=== PATIENT | female | born 1965 | race Caucasian/White ===

== ENCOUNTER 2024-04-27 06:20 | Day surgery (SDC) | payer BC, SELFPAY ==
[2024-04-24 12:51] VITALS: BMI 28.3
[2024-04-27 07:17] VITALS: BP 145/82; PULSE 83; RESP 16; TEMP 36.2; O2SAT 99
[2024-04-27] MEDS: LACTATED RINGERS 1000ML 1,000 ML 50 ML IV (07:23)
--- NOTE | 2024-04-27 07:32 | EXP.ANES.CKL ---
[facility] Disclaimer: The information contained in this section may have been updated after the patient was seen, as this information can be updated by other users. Medical History SVT (supraventricular tachycardia) Sleep apnea History of COVID-19 Hypothyroid Carpal tunnel syndrome Surgical History History of surgery Hx of carpal tunnel repair Hx of rotator cuff surgery History of fusion of cervical spine History of esophagogastroduodenoscopy (EGD) History of colonoscopy History of cholecystectomy Family History Father Laryngeal cancer Brother Esophageal cancer Mother Diabetes Hypertension Mesothelioma Social History Smoking Status: Never smoker alcohol intake: never substance use type: denies use current occupational status: employed Travel in the last 8 weeks: None caffeine: No Have you lived/traveled outside [place] in past 30 days?: No Contact w/someone who lives/traveled outside [place] past 30 days?: No Exposure to someone with infectious disease in past 14 days?: Yes Do you have a fever (greater than 100.4 F or 38 C)?: No Have you tested positive for COVID-19: Yes Exposed to someone with COVID-19 in past 14 days?: Yes Do you have a sore throat?: No Do you have a cough?: No Do you have any weakness?: No Are you experiencing any nausea/vomitting?: No Do you have any diarrhea?: No Are you experiencing any unusual bleeding?: No Do you have any muscle aches/pain?: No Do you have any abdominal pain?: No Are you experiencing loss of taste or smell?: No [facility] Anesthesia Checklist Patient Identification Patient Identification: Arm Band Structural Data Admitted From: Home Planned Operative Procedure/s: EGD Consent for Planned Operative Procedure(s) Verified: Yes Verified Documents: Surgical Consent and History and Physical NPO Status Verified Time NPO: 00:00 Additional verifications Anesthesia Reactions: No Airway Assessment Mallampati Score:: Class II C-Spine Mobility Assessed: Yes TMJ Mobility Assessed: Yes Dentition: Good Dentition Neurological Assessment Level of Consciousness: Awake, Alert and Appropriate Anesthesia Plan Anesthesia Risk discussed: Yes Anesthesia Plan: Verified ASA Class: II Anesthesia Type: MAC
--- NOTE | 2024-04-27 07:51 | P.HP_ITS ---
History of Present Illness *Admission Date: 04/27/24 *Reason for visit:: Dysphagia/family history of esophageal cancer and laryngeal cancer *History of present illness: Mrs. García is a 58-year-old female with dysphagia which has been worsening and family history of esophageal and laryngeal cancer who is here for diagnostic EGD. The examination is deemed medically necessary for EGD. The patient has been seen, interviewed and examined prior to the procedure by both myself and the anesthesia provider. [facility] Disclaimer: The information contained in this section may have been updated after the patient was seen, as this information can be updated by other users. Medical History SVT (supraventricular tachycardia) Sleep apnea History of COVID-19 Hypothyroid Carpal tunnel syndrome Surgical History History of surgery Hx of carpal tunnel repair Hx of rotator cuff surgery History of fusion of cervical spine History of esophagogastroduodenoscopy (EGD) History of colonoscopy History of cholecystectomy Family History Father Laryngeal cancer Brother Esophageal cancer Mother Diabetes Hypertension Mesothelioma Social History Smoking Status: Never smoker alcohol intake: never substance use type: denies use current occupational status: employed Travel in the last 8 weeks: None caffeine: No Have you lived/traveled outside [place] in past 30 days?: No Contact w/someone who lives/traveled outside [place] past 30 days?: No Exposure to someone with infectious disease in past 14 days?: Yes Do you have a fever (greater than 100.4 F or 38 C)?: No Have you tested positive for COVID-19: Yes Exposed to someone with COVID-19 in past 14 days?: Yes Do you have a sore throat?: No Do you have a cough?: No Do you have any weakness?: No Are you experiencing any nausea/vomitting?: No Do you have any diarrhea?: No Are you experiencing any unusual bleeding?: No Do you have any muscle aches/pain?: No Do you have any abdominal pain?: No Are you experiencing loss of taste or smell?: No Review of Systems Review of Systems Review of systems (narrative): Negative *Cardiovascular Comments: Negative *Gastrointestinal Comments: Negative *Genitourinary Comments: Negative *Musculoskeletal Comments: Negative *Neurologic Comments: Negative Meds Home Medications and Allergies Home Medications ?Medication ?Instructions ?Recorded ?Confirmed ?Type atorvastatin 20 mg tablet 20 mg PO DAILY 12/29/23 04/27/24 History folic acid 1 mg tablet 1 mg PO DAILY 12/29/23 04/27/24 History methotrexate sodium 2.5 mg tablet 2.5 mg PO WEEKLY 12/29/23 04/27/24 History pregabalin 75 mg capsule 75 mg PO ONCE 12/29/23 04/27/24 History thyroid (pork) 90 mg tablet ([employer] 90 mg PO DAILY 12/29/23 04/27/24 History Thyroid) vitamin B complex 1 tab PO DAILY 04/24/24 04/27/24 History New Prescriptions to Start Prescriptions: Allergies Allergy/AdvReac Type Severity Reaction Status Date / Time diphenhydramine (From Allergy Mild Rash Verified 04/27/24 07:14 Benadryl) Exam Data for Last 24 hours Vital signs and Labs for Last 24 Hours: Temp Pulse Resp BP Pulse Ox O2 Del Method 97.1 F L 83 16 145/82 H 99 Room Air 04/27/24 07:17 04/27/24 07:17 04/27/24 07:17 04/27/24 07:17 04/27/24 07:17 04/27/24 07:17 I & O for Last 24 hours: Intake & Output 04/24/24 04/25/24 04/26/24 04/27/24 23:59 23:59 23:59 23:59 Weight 181 lb *Routine HEENT Exam Head: Present normocephalic Eye: Present EOMI and PERRL ENT: Present mucous membranes moist *Routine Neck Exam Neck: Present supple *Routine Respiratory Exam Respiratory: Present CTA bilaterally *Routine Cardiovascular Exam Cardiovascular: Present RRR *Routine Abdominal Exam Abdominal: Present soft and normoactive bowel sounds; Absent tenderness *Routine Rectal Exam Rectal:: deferred *Routine Genitalia Exam Genitalia:: deferred *Routine Extremities Exam Extremities: Absent cyanosis, clubbing or edema *Routine Skin Exam Skin: Present warm; Absent rash *Routine Neurological Exam Neurological: Present alert and oriented X3 Assessment and Plan *Assessment and plan (1) Dysphagia: Status: Acute Category: Medical Code(s): R13.10 - Dysphagia, unspecified (2) Functional dyspepsia: Status: Acute Category: Medical Code(s): K30 - Functional dyspepsia (3) Family history of esophageal cancer: Status: Acute Category: Medical Code(s): Z80.0 - Family history of malignant neoplasm of digestive organs (4) Family history of cancer of larynx: Status: Acute Category: Medical Code(s): Z80.2 - Family history of malignant neoplasm of other respiratory and intrathora cic organs (5) Bloating: Status: Acute Category: Medical Code(s): R14.0 - Abdominal distension (gaseous) Plan A/P: 1. Dysphagia with functional dyspepsia, bloating and family history of esophageal and laryngeal cancer is the preprocedural diagnosis. The patient will be anesthetized/sedated using MAC sedation. The patient has been seen and examined. Cardiac and lung assessment prior to the examination is stable. Proceed with planned diagnostic EGD
--- NOTE | 2024-04-27 07:53 | P.PCN_ITS ---
[facility] Procedure Note Date: 04/27/24 Time: 08:13 Procedure Note:: Upper Endoscopy Procedure Report: Esophagogastroduodenoscopy with cold biopsies and TTS balloon dilation Endoscopost: Rafy Go II, MD Referring Physician: Valeriano Lindsey M.D./Camryn Arango MD [address] [address] Date of Procedure: April 27, 2024 Equipment: Olympus GIF 190 standard upper endoscope Sedation: MAC sedation Indications: Mrs. García is a 58-year-old female who is here for diagnostic upper endoscopy secondary to dysphagia which is worsening and dyspepsia. She reports cervical fusion anterior neck surgery in 2019. She feels as if food is slow to go down. She has moderate gassiness and bloating with moderate belching. She did have an EGD in October 2019 that showed bile gastropathy and nonerosive GERD. The patient does have epigastric abdominal discomfort and mild early s atiety. She reports some globus sensation. The patient does have a family history of both laryngeal cancer (father) and esophageal cancer (brother). The patient did have a HIDA scan in 2020 that showed delayed passage of radiotracer from the biliary tract into the duodenum suggestive of sphincter of Oddi dysfunction. The patient was having diarrhea when she was on Plaquenil. This was stopped approximately 1 year ago and she began methotrexate in June 2023. She does feel that her CPAP results and air swallowing. Procedure: Prior to the procedure, a history and physical exam was performed, and patient's medications and allergies were reviewed. The risks, benefits and alternatives of the sedation and procedure were discussed with the patient. All questions were answered and informed consent was obtained. The patient was brought to the procedure room. Patient identification and proposed procedure were verified by the physician and the nurse. The patient was placed in a left lateral decubitus position and the scope was passed under direct vision. Throughout the procedure, the patient's blood pressure, pulse, and oxygen saturations were monitored continuously. The upper GI endoscopy was accomplished without difficulty. The patient tolerated the procedure well. Findings: The scope was passed directly into the upper esophagus and advanced to the third portion of the duodenum. The post bulbar duodenum, ampulla and duodenal bulb were normal with normal mucosa and conniventes. The scope was withdrawn through a normal duodenal bulb and pylorus into the stomach. There was bile reflux with mild linear reactive gastropathy of the antrum and body of the stomach. Upon retroflexion there was a normal fundus with no hiatal hernia. Cold biopsies were taken from the antrum.. The scope was then withdrawn into the esophagus. There was a serrated Z-line but no evidence of reflux esophagitis or Schatzki's ring. Biopsies were taken at the GE junction. There was no corrugation or furrowing. There was no proximal esophageal inlet patch. There were tertiary contractions and evidence of moderate esophageal dysmotility. The entire esophagus was dilated to 60 Syriac/20 mm with a TTS hydrostatic balloon. There was some resistance at the cricopharyngeus/cricopharyngeal spasm. The remainder of the esophageal mucosa was normal. Impression: 1. Cricopharyngeal spasm status post dilation to 20 mm 2. Nonerosive GERD with moderate esophageal dysmotility 3. Bile reflux with mild linear reactive gastropathy Plan: I will follow-up the biopsies. Dysphagia is a common complication of anterior surgery of the cervical spine. The incidence of post-operative dysphagia may be as high as 71% within the first two weeks after surgery, but gradually decreases during the following months. However, 12% to 14% of patients may have some persistent dysphagia one year after the procedure. Risk factors include multilevel surgery, longer operating time and severe pre-operative neck pain. Although the etiology remains unclear and is probably multifactorial, proposed causes include esophageal retraction, prominence of the cervical plate and prevertebral swelling. Most of her symptoms of dyspepsia are related to and driven by lower intestinal gas pressure gradients/high gas pressure buildup resulting in backflow of bile and peptic fluid from the duodenum into the stomach (duodenal reflux). This gas production (carbon dioxide, hydrogen, methane, etc.) from the lower intestinal tract is the byproduct of colonic bacterial fermentation. This colonic fermentation occurs when there is more carbohydrate (dietary starches, sugars and high residue plant fiber) substrate that does not get digested (in the middle or small intestine) or occurs when there is colonic fecal buildup and colonic bacterial overgrowth. This indeed leads to bloating and the gas pressure buildup with gas pressure gradients that do drive backflow and dyspepsia. We will discuss treatment options.
[2024-04-27 07:57] VITALS: O2SAT 98
[2024-04-27 08:13] VITALS: BP 124/69; PULSE 83; RESP 16; TEMP 36.4; O2SAT 95
[2024-04-27 08:23] VITALS: BP 127/79; PULSE 84; RESP 16; O2SAT 98
[2024-04-27 08:33] VITALS: BP 131/74; PULSE 79; RESP 16; O2SAT 98
[2024-04-27 08:43] VITALS: BP 127/74; PULSE 87; RESP 16; O2SAT 98
== END 2024-04-27 08:50 | disposition home or self-care (01) ==
PROVIDERS: PCP Internal Medicine; Visit Provider Internal Medicine Gastroenterology
PROC: 0DJ08ZZ Inspection of Upper Intestinal Tract, Via Natural or Artificial Opening Endoscopic (ICD-10-PCS; CPT 43239; principal; 2024-04-27 08:00)
DX: R09.A2 Foreign body sensation, throat (principal); J39.2 Other diseases of pharynx; K21.9 Gastro-esophageal reflux disease without esophagitis; K22.4 Dyskinesia of esophagus; K31.9 Disease of stomach and duodenum, unspecified; R13.10 Dysphagia, unspecified; K30 Functional dyspepsia; Z80.0 Family history of malignant neoplasm of digestive organs; Z80.2 Family history of malignant neoplasm of other respiratory and intrathoracic organs; R14.0 Abdominal distension (gaseous)
CPT/HCPCS: 43239; 43249; C1726; J7120